=== PATIENT | female | born 1975 | race African-American/Black ===

== ENCOUNTER 2025-05-23 14:29 | Inpatient (IN) | payer MEDICAID, OTHER ==
[~2025-05-23] VITALS: Ht 157.5 cm; Wt 103.9 kg
[2025-05-23 14:33] VITALS: O2SAT 98
[2025-05-23] MEDS: MECLIZINE 25MG TABLET PO ONE (15:00)
[2025-05-23 15:44] LABS: BASOPHILS % 0.5 % (0.0-2.0); EOSINOPHILS % 1.9 % (0.0-5.0); HEMATOCRIT. 40.4 % (36.0-48.0); HEMOGLOBIN. 12.9 g/dL (12.0-16.0); LYMPHOCYTES % 34.2 % (20.0-50.0); MEAN PLATELET VOLUME 8.6 fl (7.4-10.4); MONOCYTES % 7.2 % (2.0-8.0); NEUTROPHILS % 56.2 % (40.0-76.0); PLATELET 256 x1000/uL (130-400); RED BLOOD CELL COUNT 6.11 mill/uL (4.2-5.4); RED CELL DISTRIBUTION WIDTH 15.4 % (11.6-14.6)
[2025-05-23 15:45] LABS: ADD RBC MORPHOLOGY YES
[2025-05-23 15:54] LABS: HCG SCREEN NEGATIVE
[2025-05-23 15:56] LABS: INR 1.0
[2025-05-23 15:57] LABS: CREATININE 0.9 mg/dL (0.6-1.0)
[2025-05-23 15:58] LABS: ETHANOL BLOOD < 10 mg/dL (<10); UREA NITROGEN BLOOD 10 mg/dL (9-23)
[2025-05-23 15:59] LABS: ASPARTATE AMINOTRANSFERASE 22 IU/L (<34); BILIRUBIN DIRECT < 0.1 mg/dL (<=3.0)
[2025-05-23 16:00] LABS: BILIRUBIN TOTAL 0.4 mg/dL (0.1-1.0); PROTEIN TOTAL 7.3 g/dL (6.0-8.3)
[2025-05-23] MEDS: DIPHENHYDRAMINE 50MG/ML VIAL IV ONE (16:07)
[2025-05-23] MEDS: ONDANSETRON HCL 4MG/2ML INJ IV ONE (16:07)
[2025-05-23] MEDS: SODIUM CHLORIDE 0.9% 1,000 ML IV ONE (16:07)
[2025-05-23] MEDS: LORAZEPAM 2MG/ML UD SYRINGE IV SCH (16:44)
[2025-05-23] MEDS: IOHEXOL-350 100 ML BOTTLE ONE (16:48)
[2025-05-23 17:08] LABS: PLATELET ESTIMATE NORMAL
[2025-05-23] MEDS ORDERED: IPRATROPIUM/ALBUTEROL 0.5-3(2.5)MG/3ML NEB HHN PRN (18:00)
[2025-05-23] MEDS ORDERED: ACETAMINOPHEN 650MG/20.3ML UDC GT PRN ×2 (18:00)
[2025-05-23] MEDS ORDERED: CLONIDINE 0.1MG TABLET PO PRN ×2 (18:00→19:15)
[2025-05-23] MEDS ORDERED: ONDANSETRON HCL 4MG/2ML INJ IV PRN (18:00)
[2025-05-23] MEDS: CLOPIDOGREL 75MG TABLET PO SCH (19:20)
[2025-05-23] MEDS: ASPIRIN 325MG EC TABLET PO NR (19:20)
[2025-05-23 19:22] LABS: PHOSPHORUS 2.5 mg/dL (2.5-4.9)
[2025-05-23 19:30] LABS: CLARITY URINE CLEAR (CLEAR); COLOR URINE YELLOW (YELLOW); GLUCOSE URINE NEGATIVE (NEGATIVE); KETONES URINE NEGATIVE (NEGATIVE); LEUKOCYTE ESTERASE URINE NEGATIVE (NEGATIVE); NITRITE URINE NEGATIVE (NEGATIVE); OCCULT BLOOD URINE NEGATIVE (NEGATIVE); PH URINE 6.0 (4.5-8.0); PROTEIN URINE NEGATIVE (NEGATIVE); SPECIFIC GRAVITY URINE 1.070 (1.005-1.030); UROBILINOGEN URINE 1.0 E.U./dL (0.2-1.0)
[2025-05-23 19:44] LABS: *AMPHETAMINES SCREEN URINE NEGATIVE (NEGATIVE); *BARBITURATES SCREEN URINE NEGATIVE (NEGATIVE); *BENZODIAZEPINES SCREEN URINE NEGATIVE (NEGATIVE); *COCAINE SCREEN URINE NEGATIVE (NEGATIVE); CANNABINOID URINE SCREEN NEGATIVE (NEGATIVE); ECSTASY MDMA SCREEN URINE NEGATIVE (NEGATIVE); METHADONE URINE SCREEN NEGATIVE (NEGATIVE); OPIATES URINE SCREEN NEGATIVE (NEGATIVE); PHENCYCLIDINE URINE SCREEN NEGATIVE (NEGATIVE)
[2025-05-23 20:28] VITALS: BP 126/73; PULSE 82; RESP 16; TEMP 36.4736
[2025-05-23] MEDS: ATORVASTATIN CALCIUM 40MG TABLET PO SCH (22:18)
[2025-05-23 22:44] LABS: TROPONIN I HIGH SENSITIVITY 11 ng/L (3.0-34)
[2025-05-23] MEDS ORDERED: IOHEXOL-350 100 ML BOTTLE ONE (22:59)
[2025-05-23] MEDS: KCL 10MEQ/50ML PREMIX 50 ML IV NR (23:06)
[2025-05-24] VITALS: BP 126/65; PULSE 77; RESP 20; TEMP 37.2; O2SAT 95
[2025-05-24] MEDS: POTASSIUM CHLORIDE 20MEQ TABLET SR PO NR (01:15)
[2025-05-24 04:00] VITALS: BP 113/64; PULSE 83; RESP 20; TEMP 37.2; O2SAT 99
[2025-05-24 08:00] VITALS: BP 109/59; PULSE 72; RESP 20; TEMP 36.6; O2SAT 97
[2025-05-24 08:00] LABS: TROPONIN I HIGH SENSITIVITY 5 ng/L (3.0-34)
[2025-05-24 08:02] LABS: CREATININE 0.8 mg/dL (0.6-1.0); TRIGLYCERIDE 67 mg/dL (0-150); UREA NITROGEN BLOOD 8 mg/dL (9-23)
[2025-05-24 08:03] LABS: LDL CHOLESTEROL 108 mg/dL (5-100); T4 FREE 1.14 ng/dL (0.89-1.76)
[2025-05-24 09:06] VITALS: BP 109/59; PULSE 72; RESP 20; TEMP 36.6; O2SAT 97
[2025-05-24 09:09] LABS: BASOPHILS % 0.4 % (0.0-2.0); EOSINOPHILS % 0.5 % (0.0-5.0); HEMATOCRIT. 36.5 % (36.0-48.0); HEMOGLOBIN. 11.6 g/dL (12.0-16.0); LYMPHOCYTES % 28.8 % (20.0-50.0); MEAN PLATELET VOLUME 9.3 fl (7.4-10.4); MONOCYTES % 8.8 % (2.0-8.0); NEUTROPHILS % 61.5 % (40.0-76.0); PLATELET 233 x1000/uL (130-400); RED BLOOD CELL COUNT 5.56 mill/uL (4.2-5.4); RED CELL DISTRIBUTION WIDTH 14.9 % (11.6-14.6)
[2025-05-24 12:40] VITALS: BP 108/56; PULSE 72; RESP 20; TEMP 36.6; O2SAT 97
[2025-05-24 15:31] VITALS: BP 117/65; PULSE 72; RESP 21; TEMP 97.8
== END 2025-05-24 16:15 | disposition short-term general hospital (02) | DRG 641 ==
LOC: ER 15:39 → 7WST 16:47 → EDBEDREQ 16:49 → ENRESERV 19:05
PROVIDERS: ADMIT Internal Medicine; ATTEND Internal Medicine
DX: R73.9 Hyperglycemia, unspecified (principal); E87.6 Hypokalemia; J45.909 Unspecified asthma, uncomplicated; G47.00 Insomnia, unspecified; E87.8 Other disorders of electrolyte and fluid balance, not elsewhere classified; D75.1 Secondary polycythemia; Z79.02 Long term (current) use of antithrombotics/antiplatelets; Z79.82 Long term (current) use of aspirin; Z82.49 Family history of ischemic heart disease and other diseases of the circulatory system; Z79.899 Other long term (current) drug therapy; Z88.8 Allergy status to other drugs, medicaments and biological substances
CPT/HCPCS: 36415; 70496; 70498; 70551; 71045; 80048; 80061; 80076; 80305; 80320; 81003; 82550; 82962; 83036; 83605; 83735; 84100; 84439; 84443; 84484; 84703; 85025; 93005; 97166; 99291; A4606; J1200; J2060; J2405; J3480; J8597; Q9967; G0480